=== PATIENT | male | born 2000 | race Caucasian/White ===

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

== ENCOUNTER → 2020-10-16 16:00 | Outpatient (BNVA) | payer MEDICAID, SELFPAY | PROVIDERS: Visit Provider Nurse Practitioner Family | DX: Z00.00 Encounter for general adult medical examination without abnormal findings (principal); Z11.3 Encounter for screening for infections with a predominantly sexual mode of transmission; M41.9 Scoliosis, unspecified; Z13.6 Encounter for screening for cardiovascular disorders | CPT/HCPCS: 80053; 80061; 85025; 86592; 87491; 87591 ==

== ENCOUNTER → 2020-10-27 13:16 | Outpatient (BNVA) | payer MEDICAID, SELFPAY | PROVIDERS: Visit Provider Nurse Practitioner Family | DX: Z11.3 Encounter for screening for infections with a predominantly sexual mode of transmission (principal); A74.9 Chlamydial infection, unspecified; R36.9 Urethral discharge, unspecified | CPT/HCPCS: 81000; 87491; 87591 ==

== ENCOUNTER → 2020-11-16 14:34 | Outpatient (BNVA) | payer MEDICAID, SELFPAY | PROVIDERS: Visit Provider Nurse Practitioner Family | DX: M41.9 Scoliosis, unspecified (principal) | CPT/HCPCS: 72082 ==

== ENCOUNTER → 2020-12-19 08:25 | Outpatient (BNVA) | payer MEDICAID, SELFPAY | PROVIDERS: Visit Provider Nurse Practitioner Psychiatric/Mental Health | DX: F31.9 Bipolar disorder, unspecified (principal); F41.1 Generalized anxiety disorder | CPT/HCPCS: 99215 ==

== ENCOUNTER → 2020-12-27 13:59 | Outpatient (BNVA) | payer MEDICAID, SELFPAY | PROVIDERS: Visit Provider Nurse Practitioner Family | DX: Z12.5 Encounter for screening for malignant neoplasm of prostate (principal) | CPT/HCPCS: G0103 ==

== ENCOUNTER → 2021-01-11 00:01 | Outpatient (BNVA) | payer MEDICAID, SELFPAY | PROVIDERS: Visit Provider Nurse Practitioner Family | DX: Z11.3 Encounter for screening for infections with a predominantly sexual mode of transmission (principal); Z74.9 Problem related to care provider dependency, unspecified; Z72.51 High risk heterosexual behavior | CPT/HCPCS: 87491; 87591 ==

== ENCOUNTER → 2021-01-16 07:43 | Outpatient (BNVA) | payer MEDICAID, SELFPAY | PROVIDERS: Visit Provider Nurse Practitioner Psychiatric/Mental Health | DX: F31.9 Bipolar disorder, unspecified (principal); F41.1 Generalized anxiety disorder | CPT/HCPCS: 99213 ==

== ENCOUNTER → 2021-04-05 11:32 | Outpatient (BNVA) | payer MEDICAID, SELFPAY | PROVIDERS: Visit Provider Counselor Mental Health | DX: F41.1 Generalized anxiety disorder (principal); F31.9 Bipolar disorder, unspecified | CPT/HCPCS: 90834 ==

== ENCOUNTER → 2021-04-12 10:32 | Outpatient (BNVA) | payer MEDICAID, SELFPAY | PROVIDERS: Visit Provider Nurse Practitioner Psychiatric/Mental Health | DX: F31.9 Bipolar disorder, unspecified (principal); F41.1 Generalized anxiety disorder | CPT/HCPCS: 99214 ==

== ENCOUNTER → 2021-04-26 11:41 | Outpatient (BNVA) | payer MEDICAID, SELFPAY | PROVIDERS: Visit Provider Counselor Mental Health | DX: F41.1 Generalized anxiety disorder (principal) | CPT/HCPCS: 90834 ==

== ENCOUNTER 2021-05-10 08:16 | Emergency (ER) | payer MEDICAID, SELFPAY ==
[2021-05-10 08:20] VITALS: BP 117/50; PULSE 67; RESP 16; TEMP 36.6; O2SAT 99; BMI 22.9
--- NOTE | 2021-05-10 08:31 | XR_ITS ---
WS: [id number] XR ribs RT mn 3V w CXR1V [id number] REASON FOR EXAM: trauma FINDINGS: No fracture or focal bone lesion of the right ribs. No underlying pulmonary parenchymal or pleural abnormality. No soft tissue abnormality. XR/XR ribs RT mn 3V w CXR1V [id number] IMPRESSION: No acute abnormality.
--- NOTE | 2021-05-10 08:32 | W.ED.GENADLT ---
HPI - General Adult General: Chief complaint: General Medical Stated complaint: HIT WITH CRATE IN RIB AREA Time Seen by Provider: 05/10/21 08:24 History of Present Illness: HPI narrative: Patient comes in with concerns for right lower rib pain. States last night while at work he was hit in that side by a crate. Denies any difficulty breathing. States that he has boss wanted him checked out before he was allowed to return to work. Associated symptoms: Deny chest pain, dyspnea, headache(s), nausea, rash, palpitations or vomiting Review of Systems Const: Denies: fever(s) or body aches Eyes: Denies: change in vision or blurry vision ENMT: Denies: throat pain or odynophagia Card: Denies: chest pain or palpitations Resp: Denies: dyspnea or productive cough GI: Denies: abdominal pain, nausea or vomiting : Denies: flank pain or dysuria Musc: Denies: neck pain or back pain Skin/Breast: Denies: rash or pruritus Neuro: Denies: headache(s) or numbness in extremities Psych: Denies: anxiety or change in appetite Endo: Denies: polyuria or excessive sweating PFSH ED PFSH: Medical History (Updated 05/10/21 @ 09:10 by Blayne Martin MD) Generalized anxiety disorder Information retrieved and edited from Behavior Assessment Report on 11/21/20: He has been experiencing excessive anxiety and worry occurring more days than not, for at least 6 months, and about a number of events or activities related to daily tasks and performance. The client has been having difficulty controlling worry, worrying about too many things at the same time, with symptoms of being restless or keyed up, being easily fatigued, difficulty concentrating, irritability, muscle tension, and significant sleep disturbances. These symptoms have caused significant distress and interfering with social, occupational, and other important areas of functioning. Administered GAD7 with score of 17 which places his current anxiety in severe range (15-21) Psychiatric care Family History Grandmother Diabetes Stroke Mother Hypertension Psychiatric illness Bipolar Father Psychiatric illness Bipolar Denies family history of CAD (coronary artery disease) Clotting disorder Bleeding disorder Cancer Social History Second hand smoke exposure: No Smoking risk assessment/counseling performed?: Yes Tobacco counseling given: counseling >3 minutes Alcohol intake: never Adopted: No Caregiver/support person: No Lives independently: Yes Marital status: Single service: No Current occupational status: employed Current occupation: [employer] History of recent travel: No Current gender identity: Male Special mignon needs: No Agree to transfusion: Yes Physical Exam Const: COMMON NORMALS: no acute distress, patient oriented x3, healthy appearing and alert HENMT: COMMON NORMALS: normocephalic and atraumatic HEAD & SCALP: normocephalic and atraumatic Eye: COMMON NORMALS: Equal, round and reactive pupils present and EOMs intact bilaterally PUPIL: Yes Equal, round and reactive pupils present Neck/C-Spine: COMMON NORMALS: full ROM and supple Chest: CHEST: Yes abnormal inspection of the chest (Mild tenderness to palpation of the right lateral chest wall) Resp: COMMON NORMALS: normal respiratory effort, No retractions and No use of accessory muscles Cardio: COMMON NORMALS: regular rate and regular rhythm RATE: regular rate RHYTHM: regular rhythm GI: COMMON NORMALS: Normal to inspection, nondistended, normoactive bowel sounds present, Soft to palpation and non-tender PALPATION: Yes Soft to palpation Back/Pelvis: COMMON NORMALS: thoracic and lumbar spine normal to inspection and no thoracic nor lumbar tenderness Extremity: COMMON NORMALS: normal to inspection and full ROM Neuro: COMMON NORMALS: patient oriented x3 SENSORIUM/ORIENTATION: Yes alert Psych: COMMON NORMALS: mental status grossly normal and cooperative Skin: COMMON NORMALS: no rashes or lesions noted and no wounds GENERAL SKIN EXAM: no rashes or lesions noted Course Vital Signs: Vital signs: Vital Signs Temperature 97.8 F 05/10/21 08:20 Pulse Rate 66 05/10/21 09:27 Respiratory Rate 14 05/10/21 09:27 Blood Pressure 134/65 05/10/21 09:27 Pulse Oximetry 99 05/10/21 09:27 MDM - General Adult MDM Narrative: Medical decision making narrative: Patient comes in with concerns for rib injury. States he was hit by a crate on the right lateral chest wall last night. States his boss wants him to be evaluated prior to returning to work. On physical exam he has a very mild tenderness to the right lateral lower chest wall. Will check x-ray, and reassess. On reassessment I talked to the patient about the test results. Will discharge at this time with precautions return for worsening or changing symptoms. Discharge Plan Discharge Patient Disposition: Home Clinical Impression: Acute chest wall pain Condition: Stable Prescriptions: New EC-Naproxen 375 mg tablet,delayed release (DR/EC) 375 mg PO BID Qty: 10 RF: 0 No Action quetiapine 25 mg tablet 25 mg PO .Every morning Qty: 30 RF: 1 hydroxyzine pamoate 50 mg capsule 50 mg PO DAILY PRN (Reason: anxiety) Qty: 30 RF: 0 quetiapine 100 mg tablet 100 mg PO .Nightly Qty: 30 RF: 1 cetirizine [Zyrtec] 10 mg tablet 10 mg PO DAILY PRN (Reason: allergy symptoms) Qty: 30 RF: 5 Discharge Orders: Discharge ED (Routine); Ordered 05/10/21 Ordered By: Blayne Martin Stand Alone Forms: Work/School Release Coding Level of Care Code ED Slate Splitter for Bianca Fwd Exam Comprehensive
[2021-05-10 09:27] VITALS: BP 134/65; PULSE 66; RESP 14; O2SAT 99
== END 2021-05-10 09:28 | disposition home or self-care (01) ==
PROVIDERS: Emergency Provider Emergency Medicine
DX: R07.89 Other chest pain (principal)
CPT/HCPCS: 71101; 90832; 99283

== ENCOUNTER → 2021-06-06 11:48 | Outpatient (BNVA) | payer MEDICAID, SELFPAY | PROVIDERS: Visit Provider Counselor Mental Health | DX: F31.9 Bipolar disorder, unspecified (principal) | CPT/HCPCS: 90834 ==